=== PATIENT | female | born 1930 | race Caucasian/White ===

== ENCOUNTER → 2017-10-04 | Outpatient (CLI) | payer MEDICARE, OTHER ==
[~2017-10-04] MED LIST: ROCURONIUM BROMIDE 10MG/1ML 5ML VL ONE
== END | disposition home or self-care (01) ==
LOC: RAH 14:29
PROVIDERS: ATTEND Orthopaedic Surgery
DX: M75.101 Unspecified rotator cuff tear or rupture of right shoulder, not specified as traumatic (principal); M75.41 Impingement syndrome of right shoulder; M25.461 Effusion, right knee
CPT/HCPCS: 73221